=== PATIENT | female | born 1990 ===

== ENCOUNTER → 2016-04-04 | Outpatient (REF) | payer OTHER | END | disposition home or self-care (01) | LOC: M LABDRAW1 16:59 | PROVIDERS: ATTEND Nurse Practitioner Family | DX: Z11.3 Encounter for screening for infections with a predominantly sexual mode of transmission (principal) ==

== ENCOUNTER → 2017-08-22 | Outpatient (CLI) | payer OTHER | LOC: M ADAMS 10:51 | DX: S20.212A Contusion of left front wall of thorax, initial encounter (principal); R07.89 Other chest pain; X58.XXXA Exposure to other specified factors, initial encounter; Y92.89 Other specified places as the place of occurrence of the external cause; Y93.9 Activity, unspecified; Y99.9 Unspecified external cause status | CPT/HCPCS: 71101 ==